=== PATIENT | male | born 1940 | race Two or more races ===

== ENCOUNTER 2023-07-03 11:29 | Day surgery (SDC) | payer MEDICARE, OTHER ==
[2023-07-02 14:44] VITALS: BMI 28.8
[2023-07-03] MEDS ORDERED: Lidocaine 1% (PF) 30 ML VIAL ONE (13:32)
[2023-07-03] MEDS ORDERED: EPINEPHrine 1 MG/ML VIAL ONE (13:32)
[2023-07-03] MEDS ORDERED: Oxymetazoline HCl 0.05% (30 ML BOT) ONE (13:35)
[2023-07-03] MEDS ORDERED: Dexamethasone 20 MG/5 ML VIAL ONE ×2 (13:44→14:18)
[2023-07-03] MEDS ORDERED: fentaNYL PF 100 MCG/2 ML SYRINGE ONE (13:44)
[2023-07-03] MEDS ORDERED: PHENYLEPHRINE-NS 100 MCG/ML 10 ML SYRINGE ONE (13:44)
[2023-07-03] MEDS ORDERED: Ondansetron PF 4 MG/2 ML Vial ONE ×2 (13:44→14:18)
[2023-07-03] MEDS ORDERED: PROPOFOL 20 ML ONE (13:44)
[2023-07-03] MEDS ORDERED: PROPOFOL 200 MG/20 ML VIAL ONE (14:18)
[2023-07-03] MEDS ORDERED: Rocuronium Bromide 10 MG/ML (10ML VIAL) ONE (14:18)
[2023-07-03] MEDS ORDERED: Lidocaine 1% PF 5 ML VIAL ONE (14:18)
[2023-07-03] MEDS ORDERED: Succinylcholine 200 MG/10 ml SYRINGE FS ONE (14:18)
[2023-07-03] MEDS ORDERED: Ketamine In 0.9 % NaCl 50 MG/5 ML SYRINGE ONE (14:19)
[2023-07-03 14:20] LABS: #Eosinphils 0.2 thou/uL (0.0-0.7); #Monocytes 0.4 thou/uL (0.11-0.59); #Neutrophils 5.2 thou/uL (1.40-6.50); %Basophils 0.6 % (0.0-1.0); %Eosinophils 2.9 % (0.0-10.0); %Monocytes 5.2 % (0.0-10.0); %Neutrophils 77.2 % (42.0-75.0); Hematocrit 46.1 % (42.0-52.0); Hemoglobin 15.7 g/dL (14.0-18.0); Mean Corpuscular HGB CONC 34.1 g/dL (32.0-36.0); Mean Corpuscular Hemoglobin 32.4 pg (27.0-31.0); Mean Corpuscular Volume 95.2 fl (78.0-98.0); Mean Platelet Volume 11.4 fL (7.4-10.4); Platelet Count 137 10x3/uL (130-400); RBC Distribution Width 12.7 % (11.5-14.5); Red Blood Cell (RBC) Count 4.84 mill/uL (4.70-6.10); White Blood Cell (WBC) Count 6.8 10x3/uL (4.8-10.8)
[2023-07-03 14:36] LABS: Anion Gap 15 mmol/L (10-20); BUN (Urea Nitrogen) 11 mg/dL (8.4-25.7); Calc. Creatinine Clearance 59 mL/min (70-130); Calcium 8.9 mg/dL (7.8-10.44); Carbon Dioxide 22 mmol/L (23-31); Chloride 106 mmol/L (98-107); Estimated GFR 63; Glucose 90 mg/dL (83-110); Sodium 139 mmol/L (136-145)
[2023-07-03] MEDS ORDERED: SUGAMMADEX SODIUM 200 MG/2 ML VIAL ONE ×2 (14:37→14:55)
[2023-07-03] MEDS ORDERED: fentaNYL 50 mcg/mL 1 mL Vial ONE ×2 (15:26→16:15)
[2023-07-03] MEDS ORDERED: hydrALAZINE 20 MG/ML VIAL ONE (16:14)
== END 2023-07-03 17:56 | disposition home or self-care (01) ==
LOC: SDC 11:29
PROVIDERS: ATTEND Specialist
PROC: 09BV8ZZ Excision of Left Ethmoid Sinus, Via Natural or Artificial Opening Endoscopic (ICD-10-PCS; principal; 2023-07-03)
PROC: 09BQ8ZZ Excision of Right Maxillary Sinus, Via Natural or Artificial Opening Endoscopic (ICD-10-PCS; 2023-07-03)
PROC: 09BR8ZZ Excision of Left Maxillary Sinus, Via Natural or Artificial Opening Endoscopic (ICD-10-PCS; 2023-07-03)
PROC: 09BS8ZZ Excision of Right Frontal Sinus, Via Natural or Artificial Opening Endoscopic (ICD-10-PCS; 2023-07-03)
PROC: 09BT8ZZ Excision of Left Frontal Sinus, Via Natural or Artificial Opening Endoscopic (ICD-10-PCS; 2023-07-03)
PROC: 09BU8ZZ Excision of Right Ethmoid Sinus, Via Natural or Artificial Opening Endoscopic (ICD-10-PCS; 2023-07-03)
PROC: 09BL8ZZ Excision of Nasal Turbinate, Via Natural or Artificial Opening Endoscopic (ICD-10-PCS; 2023-07-03)
DX: J32.4 Chronic pansinusitis (principal); J33.9 Nasal polyp, unspecified; Z79.82 Long term (current) use of aspirin; Z79.899 Other long term (current) drug therapy; Z87.891 Personal history of nicotine dependence
CPT/HCPCS: 30140; 31253; 31256; 80048; 85025; 87070; 87075; 87205; 93005; J0171; J0360; J3010; 93010; J1100; J2001; J2405; J2704; J3490